=== PATIENT | male | born 1950 | race Caucasian/White ===

== ENCOUNTER 2016-02-20 09:00 | Outpatient (RCR) | payer MEDICARE, OTHER ==
[2015-04-07 01:20] VITALS: BP 154/99
[~2016-02-20 09:00] MED LIST: AMLODIPINE BESY10 MG PO; ASPIR-TRIN325 M1 PO; CLOBETASOL PROP0.053 TP; CODEINE/GUAIFE120 M2 PO; LISINOPRIL40 MG PO; MINIPRESS2 MG PO; NEURONTIN300 M1 PO; PERCOCET 325 MG1 TA2 PO; PROAIR RESPICL90 MCG IH; SYMBICORT1 AE3 IH; VANDAZOLE 0.75%70 GM TP
== END 2016-03-18 13:09 ==
LOC: OPPGERO 09:00
DX: F33.1 Major depressive disorder, recurrent, moderate (principal); F06.4 Anxiety disorder due to known physiological condition; F10.20 Alcohol dependence, uncomplicated

== ENCOUNTER 2016-03-19 08:15 | Outpatient (RCR) | payer MEDICARE, OTHER ==
[2015-04-07 01:20] VITALS: BP 154/99
[2016-04-11] MEDS ORDERED: COMBIVENT RESPI1 SPR IH (15:08)
[2016-04-11] MEDS ORDERED: COMBIVENT RESPI1 SPR INH (15:10)
[2016-04-11] MEDS ORDERED: ASPIR LOW81 MG PO (15:11)
[2016-04-11] MEDS ORDERED: KEFLEX250 M1 (15:12)
[2016-04-11] MEDS ORDERED: FLONASE ALLERG9.9 ML NS (15:14)
[2016-04-11] MEDS ORDERED: TEMOVATE CREAM15 GM TP (15:14)
[2016-04-11] MEDS ORDERED: ADVAIR DISKUS1 DS1 IH (15:15)
[2016-04-11] MEDS ORDERED: LASIX80 M1 PO (15:15)
[2016-04-11] MEDS ORDERED: IBU800 M1 PO (15:53)
[2016-04-11] MEDS ORDERED: CLARITIN10 M1 PO (15:54)
[2016-04-11] MEDS ORDERED: ATROVENT HFA IH (15:54)
[2016-04-11] MEDS ORDERED: METROCREAM CREA45 GM TOP (15:54)
[2016-04-11] MEDS ORDERED: SINGULAIR PO (15:55)
[2016-04-11] MEDS ORDERED: ELIQUIS5 MG PO (15:59)
[2016-04-16] MEDS ORDERED: PENICILLIN-VK500 M1 PO (15:22)
[2016-04-16] MEDS ORDERED: CARTIA XT240 MG PO (15:23)
== END 2016-04-15 10:17 ==
LOC: OPPGERO 08:15
DX: F33.1 Major depressive disorder, recurrent, moderate (principal); F06.4 Anxiety disorder due to known physiological condition; F10.20 Alcohol dependence, uncomplicated

== ENCOUNTER 2016-04-11 14:26 | Emergency (ER) | payer MEDICARE, OTHER ==
[2016-04-11] MEDS ORDERED: COMBIVENT RESPI1 SPR IH (15:08)
[2016-04-11] MEDS ORDERED: COMBIVENT RESPI1 SPR INH (15:10)
[2016-04-11] MEDS ORDERED: ASPIR LOW81 MG PO (15:11)
[2016-04-11] MEDS ORDERED: KEFLEX250 M1 (15:12)
[2016-04-11] MEDS ORDERED: FLONASE ALLERG9.9 ML NS (15:14)
[2016-04-11] MEDS ORDERED: TEMOVATE CREAM15 GM TP (15:14)
[2016-04-11] MEDS ORDERED: LASIX80 M1 PO (15:15)
[2016-04-11] MEDS ORDERED: ADVAIR DISKUS1 DS1 IH (15:15)
[2016-04-11] MEDS ORDERED: IBU800 M1 PO (15:53)
[2016-04-11] MEDS ORDERED: ATROVENT HFA IH (15:54)
[2016-04-11] MEDS ORDERED: METROCREAM CREA45 GM TOP (15:54)
[2016-04-11] MEDS ORDERED: CLARITIN10 M1 PO (15:54)
[2016-04-11] MEDS ORDERED: SINGULAIR PO (15:55)
[2016-04-11] MEDS ORDERED: ELIQUIS5 MG PO (15:59)
[2016-04-11 16:56] VITALS: BP 152/84
== END 2016-04-11 16:05 | disposition home or self-care (01) ==
LOC: ED 14:26
DX: R06.09 Other forms of dyspnea (principal); R60.9 Edema, unspecified; J44.9 Chronic obstructive pulmonary disease, unspecified; I50.9 Heart failure, unspecified; R09.02 Hypoxemia; R94.5 Abnormal results of liver function studies; R31.9 Hematuria, unspecified; F10.20 Alcohol dependence, uncomplicated; F17.210 Nicotine dependence, cigarettes, uncomplicated
CPT/HCPCS: J1940

== ENCOUNTER 2016-04-16 06:56 | Outpatient (RCR) | payer MEDICARE, OTHER ==
[~2016-04-16 06:56] MED LIST changes: +ADVAIR DISKUS1 DS1 IH; +ASPIR LOW81 MG PO; +ATROVENT HFA IH; +CLARITIN10 M1 PO; +COMBIVENT RESPI1 SPR IH; +COMBIVENT RESPI1 SPR INH; +ELIQUIS5 MG PO; +FLONASE ALLERG9.9 ML NS; +IBU800 M1 PO; +KEFLEX250 M1; +LASIX80 M1 PO; +METROCREAM CREA45 GM TOP; +SINGULAIR PO; +TEMOVATE CREAM15 GM TP
[2016-04-16] MEDS ORDERED: PENICILLIN-VK500 M1 PO (15:22)
[2016-04-16] MEDS ORDERED: CARTIA XT240 MG PO (15:23)
== END 2016-05-16 16:00 ==
LOC: OPPGERO 06:56

== ENCOUNTER 2016-04-16 14:33 | Outpatient (RCR) | payer MEDICARE, OTHER ==
[2016-04-16] MEDS ORDERED: PENICILLIN-VK500 M1 PO (15:22)
[2016-04-16] MEDS ORDERED: CARTIA XT240 MG PO (15:23)
[2016-04-16 15:27] VITALS: BP 150/91
[2016-04-16 16:48] VITALS: BP 146/82
[2016-04-17 14:32] VITALS: BP 117/63
[2016-04-17 15:28] VITALS: BP 113/76
[2016-04-18 14:43] VITALS: BP 153/85
[2016-04-18 15:39] VITALS: BP 129/75
[2016-04-19 14:45] VITALS: BP 114/69
[2016-04-19 15:45] VITALS: BP 107/64
[2016-04-20 14:28] VITALS: BP 138/73
[2016-04-20 15:25] VITALS: BP 121/63
[2016-04-22 13:35] VITALS: BP 157/75
[2016-04-22 15:20] VITALS: BP 153/81
[2016-04-23 13:30] VITALS: BP 150/82
[2016-04-23 15:00] VITALS: BP 145/79
[2016-04-24 13:40] VITALS: BP 179/101
--- NOTE | 2016-04-24 13:40 | NUR ---
NOTIFIED DOM OF PATIENTS ELEVATED BP AT THIS TIME, WE WILL CONTINUE TO MONITOR AND LET PATIENT "COOL DOWN" FROM WALKING IN AND BEING SOB PER PATIENT'S NORM
[2016-04-24 15:41] VITALS: BP 163/89
== END 2016-04-24 17:00 | disposition home or self-care (01) ==
LOC: AMSURD 14:33
DX: L03.116 Cellulitis of left lower limb (principal); L03.115 Cellulitis of right lower limb
CPT/HCPCS: J1956

== ENCOUNTER 2016-05-02 14:26 | Outpatient (RCR) | payer MEDICARE, OTHER ==
[~2016-05-02] VITALS: Ht 162.6 cm; Wt 108.2 kg
[2016-05-02 13:50] VITALS: BP 140/69
--- NOTE | 2016-05-02 14:10 | NUR ---
PT ARRIVES TO [facility] FOR OUTPATIENT WOUND DRESSING CHANGE, STATES THEY CHANGED HIS DRESSING ON THURSDAY AND WOUND CLINIC AND HE WILL BE RETURNING TO WOUND CLINIC ON THURSDAY FOR HIS NEXT DRESSING CHANGE AND WILL RELAY ANY NEW ORDERS BACK TO US, PT IN PLEASANT MOOD, PAIN AT SITE WITH MANIPULATION, MULTIPLE OPEN SORES TO LLE WITH PUS AND OOZING, ONLY 1 OPEN SORE TO LATERAL RLE WITH SCANT DRAINAGE, DRESSING CHANGE ADMINISTERED PER ORDERS, PATIENT TOLERATED PROCEDURE WELL, STATES HE IS ON ORAL ANTIBIOTICS AT HOME THAT "HOPEFULLY WILL HELP", PATIENT ARRIVED WITH NO SHOES AND WAS EDUCATED TO TRY AND FIND A PAIR BIG ENOUGH TO WEAR FOR PROTECTION AND SAFETY, PROVIDED TWO PAIRS OF XXL GRIPPER SOCKS FOR PROTECTION AT THIS TIME, NO FURTHER QUESTIONS OR CONCERNS, PATIENT AMBULATORY ON ROOM AIR TO [facility] TO RETURN HOME WITH HIS
[~2016-05-02 14:26] MED LIST changes: +CARTIA XT240 MG PO; +PENICILLIN-VK500 M1 PO
[2016-05-09 14:30] VITALS: BP 127/62
[2016-05-16 13:33] VITALS: BP 141/78
[2016-05-16 14:16] VITALS: BP 144/76
[2016-05-23 13:40] VITALS: BP 157/100
[2016-06-02] MEDS ORDERED: BETAPACE120 M1 PO (14:17)
[2016-06-02] MEDS ORDERED: POTASSIUM CH2 MEQ/ML PO (14:17)
[2016-06-02 14:20] VITALS: BP 138/82
[2016-06-09 13:50] VITALS: BP 130/52
[2016-06-09] MEDS ORDERED: BETAPACE PO (14:18)
[2016-06-16 13:45] VITALS: BP 126/78
== END 2016-07-31 | disposition home or self-care (01) ==
LOC: AMSURD → LAB 14:26 → AMSURD 14:26
DX: Z48.00 Encounter for change or removal of nonsurgical wound dressing (principal); L97.822 Non-pressure chronic ulcer of other part of left lower leg with fat layer exposed; L97.212 Non-pressure chronic ulcer of right calf with fat layer exposed; I87.2 Venous insufficiency (chronic) (peripheral)
CPT/HCPCS: 11883; A6206

== ENCOUNTER 2016-10-19 20:16 | Observation (INO) | payer MEDICARE, OTHER ==
[~2016-10-19] VITALS: Ht 162.6 cm; Wt 90.0 kg
[~2016-10-19 20:16] MED LIST changes: +BETAPACE PO; +BETAPACE120 M1 PO; +POTASSIUM CH2 MEQ/ML PO
[2016-10-19] MEDS ORDERED: ADVAIR DISKUS1 DS1 IH (20:50)
[2016-10-20 01:43] VITALS: BP 126/63
[2016-10-20 01:45] VITALS: BP 126/63
[2016-10-20 03:39] VITALS: BP 120/69
[2016-10-20 06:43] VITALS: BP 133/78
[2016-10-20] MEDS ORDERED: LASIX80 M1 PO (10:09)
[2016-10-20] MEDS ORDERED: CEFDINIR300 MG PO (10:14)
[2016-10-20] MEDS ORDERED: IPRATROPIUM BROM3 M1 IH (10:14)
[2016-10-20] MEDS ORDERED: ZITHROMAX 250M250 MG PO (10:14)
[2016-10-20] MEDS ORDERED: K-TAB20 MEQ PO (10:17)
[2016-10-20 11:00] VITALS: BP 138/80
== END 2016-10-20 13:57 | disposition home or self-care (01) ==
LOC: ED 20:16 → MED/SURG 10-20 01:14
PROVIDERS: ADMIT Family Medicine
DX: I11.0 Hypertensive heart disease with heart failure (principal); I50.1 Left ventricular failure, unspecified; J44.0 Chronic obstructive pulmonary disease with (acute) lower respiratory infection; J18.9 Pneumonia, unspecified organism; R09.02 Hypoxemia; J44.1 Chronic obstructive pulmonary disease with (acute) exacerbation; R79.89 Other specified abnormal findings of blood chemistry; F10.10 Alcohol abuse, uncomplicated; Z79.01 Long term (current) use of anticoagulants; E87.6 Hypokalemia; I44.2 Atrioventricular block, complete; Z95.0 Presence of cardiac pacemaker; F17.210 Nicotine dependence, cigarettes, uncomplicated; R00.0 Tachycardia, unspecified; Z99.81 Dependence on supplemental oxygen; S81.812A Laceration without foreign body, left lower leg, initial encounter; S81.811A Laceration without foreign body, right lower leg, initial encounter; S41.112A Laceration without foreign body of left upper arm, initial encounter; S41.111A Laceration without foreign body of right upper arm, initial encounter; X58.XXXA Exposure to other specified factors, initial encounter; T50.996A Underdosing of other drugs, medicaments and biological substances, initial encounter; Z91.128 Patient's intentional underdosing of medication regimen for other reason; R32 Unspecified urinary incontinence
CPT/HCPCS: G0378; J0696; J1940

== ENCOUNTER → 2018-01-14 | Outpatient (CLI) | payer MEDICARE, OTHER ==
[~2018-01-14] MED LIST changes: +CEFDINIR300 MG PO; +IPRATROPIUM BROM3 M1 IH; +K-TAB20 MEQ PO; +ZITHROMAX 250M250 MG PO
== END ==
LOC: RAD 13:00
DX: R91.8 Other nonspecific abnormal finding of lung field (principal)

== ENCOUNTER 2018-07-08 11:50 | Emergency (ER) | payer MEDICARE, OTHER ==
[~2018-07-08] VITALS: Ht 165.1 cm; Wt 88.8 kg
[~2018-07-08 11:50] MED LIST changes: +CEPHALEXIN500 M1 PO; +SOTALOL HCL160 MG PO
[2018-07-08 12:16] LABS: BASO # 0.1 (0.02-0.10); EOS # 0.1 (0.04-0.40); EOS % 0.9 % (0.0-4.0); HEMATOCRIT 29.5 % (42.0-52.0); HEMOGLOBIN 9.9 g/dL (13.5-18.0); LYMPH# 1.3 (1.50-4.00); MEAN CELL VOLUME 94 fl (78-100); MEAN CORPUSCULAR HEMOGLOBIN 32 pg (27-31); MEAN CORPUSCULAR HGB CONC 34 g/dL (33-37); MEAN PLATELET VOLUME 11.1 fl (7.4-10.4); MONO # 0.8 (0.20-0.80); NEU # 5.7 (1.40-6.50); PLATELET COUNT 188 K/mm3 (130-400); RED BLOOD COUNT 3.13 M/mm3 (4.20-5.60); RED CELL DISTRIBUTION WIDTH 16.2 % (11.5-14.5); WHITE BLOOD COUNT 7.9 K/mm3 (4.8-10.8)
[2018-07-08 12:32] LABS: CALCIUM 8.4 mg/dL (8.8-10.0); POTASSIUM 3.2 mmol/L (3.5-5.1); TOTAL BILIRUBIN 1.5 mg/dL (0.2-1.2); TOTAL PROTEIN 6.1 g/dL (6.2-8.1)
[2018-07-08 15:22] LABS: URINE APPEARANCE HAZY; URINE BILIRUBIN NEGATIVE (NEGATIVE); URINE BLOOD TRACE (NEGATIVE); URINE COLOR YELLOW; URINE GLUCOSE NEGATIVE (NEGATIVE); URINE KETONE 1+ (NEGATIVE); URINE LEUKOCYTE ESTERASE TRACE (NEGATIVE); URINE NITRATE NEGATIVE (NEGATIVE); URINE PROTEIN(semi-quant) TRACE mg/dL (NEGATIVE); URINE UROBILINOGEN NORMAL (NORMAL)
[2018-07-08 18:46] VITALS: BP 113/57
[2018-07-08 19:03] VITALS: BP 113/57
[2018-07-08 22:17] VITALS: BP 110/63
[2018-07-09 03:00] VITALS: BP 114/63
[2018-07-09 06:26] VITALS: BP 119/72; BP 136/62
[2018-07-09 09:37] VITALS: BP 120/72
== END 2018-07-08 17:30 | disposition other institution (70) ==
LOC: ED 11:50 → MED/SURG 17:31
PROVIDERS: Nurse Practitioner Family
DX: S80.812A Abrasion, left lower leg, initial encounter (principal); F10.10 Alcohol abuse, uncomplicated; E87.6 Hypokalemia; E87.1 Hypo-osmolality and hyponatremia; R62.7 Adult failure to thrive; E83.42 Hypomagnesemia; I25.10 Atherosclerotic heart disease of native coronary artery without angina pectoris; I11.0 Hypertensive heart disease with heart failure; I50.9 Heart failure, unspecified; G47.33 Obstructive sleep apnea (adult) (pediatric); G62.9 Polyneuropathy, unspecified; J44.9 Chronic obstructive pulmonary disease, unspecified; M54.30 Sciatica, unspecified side; F43.10 Post-traumatic stress disorder, unspecified; F32.9 Major depressive disorder, single episode, unspecified; F17.210 Nicotine dependence, cigarettes, uncomplicated; Z23 Encounter for immunization; Z74.2 Need for assistance at home and no other household member able to render care; Z95.0 Presence of cardiac pacemaker; Z87.442 Personal history of urinary calculi; Z79.01 Long term (current) use of anticoagulants; Z96.651 Presence of right artificial knee joint; W18.30XA Fall on same level, unspecified, initial encounter; Y92.009 Unspecified place in unspecified non-institutional (private) residence as the place of occurrence of the external cause
CPT/HCPCS: 90715; C9113; J0610; J1940; J3411; J3475; J3480; J3490; J7030; J7050; L0172

== ENCOUNTER → 2018-07-20 | Outpatient (CLI) | payer MEDICARE, OTHER ==
[2018-07-09 09:37] VITALS: BP 120/72
[2018-07-20 16:07] LABS: PROTHROMBIN TIME 11.4 SECONDS (9.0-12.0)
[2018-07-20 16:10] LABS: TOTAL BILIRUBIN 1.3 mg/dL (0.2-1.2); TOTAL PROTEIN 6.6 g/dL (6.2-8.1)
[2018-07-20 16:16] LABS: BASO # 0.1 (0.02-0.10); EOS # 0.1 (0.04-0.40); EOS % 1.2 % (0.0-4.0); HEMATOCRIT 33.3 % (42.0-52.0); HEMOGLOBIN 10.7 g/dL (13.5-18.0); LYMPH# 1.8 (1.50-4.00); MEAN CELL VOLUME 95 fl (78-100); MEAN CORPUSCULAR HEMOGLOBIN 31 pg (27-31); MEAN CORPUSCULAR HGB CONC 32 g/dL (33-37); MEAN PLATELET VOLUME 10.2 fl (7.4-10.4); MONO # 1.1 (0.20-0.80); NEU # 6.1 (1.40-6.50); PLATELET COUNT 287 K/mm3 (130-400); RED CELL DISTRIBUTION WIDTH 17.6 % (11.5-14.5); WHITE BLOOD COUNT 9.2 K/mm3 (4.8-10.8)
== END ==
LOC: LAB 15:34
PROVIDERS: Physician Assistant
DX: I48.91 Unspecified atrial fibrillation (principal)

== ENCOUNTER 2018-07-24 12:46 | Emergency (ER) | payer MEDICARE, OTHER ==
[~2018-07-24] VITALS: Ht 162.6 cm; Wt 87.6 kg
[2018-07-24 13:45] LABS: BASO # 0.2 (0.02-0.10); EOS # 0.1 (0.04-0.40); EOS % 1.6 % (0.0-4.0); HEMATOCRIT 31.8 % (42.0-52.0); HEMOGLOBIN 10.1 g/dL (13.5-18.0); LYMPH# 1.8 (1.50-4.00); MEAN CELL VOLUME 95 fl (78-100); MEAN CORPUSCULAR HEMOGLOBIN 30 pg (27-31); MEAN CORPUSCULAR HGB CONC 32 g/dL (33-37); MEAN PLATELET VOLUME 10.2 fl (7.4-10.4); MONO # 0.9 (0.20-0.80); NEU # 4.5 (1.40-6.50); PLATELET COUNT 180 K/mm3 (130-400); RED BLOOD COUNT 3.34 M/mm3 (4.20-5.60); RED CELL DISTRIBUTION WIDTH 18.6 % (11.5-14.5); WHITE BLOOD COUNT 7.5 K/mm3 (4.8-10.8)
[2018-07-24 14:02] LABS: CALCIUM 9.2 mg/dL (8.3-10.5); POTASSIUM 3.9 mmol/L (3.5-5.1); TOTAL BILIRUBIN 1.2 mg/dL (0.2-1.2); TOTAL PROTEIN 6.4 g/dL (6.2-8.1)
[2018-07-24 14:33] LABS: URINE APPEARANCE CLEAR; URINE BILIRUBIN NEGATIVE (NEGATIVE); URINE BLOOD NEGATIVE (NEGATIVE); URINE COLOR YELLOW; URINE GLUCOSE NEGATIVE (NEGATIVE); URINE KETONE NEGATIVE (NEGATIVE); URINE LEUKOCYTE ESTERASE TRACE (NEGATIVE); URINE NITRATE NEGATIVE (NEGATIVE); URINE PROTEIN(semi-quant) NEGATIVE (NEGATIVE); URINE UROBILINOGEN NORMAL (NORMAL); URINE WBC 0-1 /hpf (0-3)
[2018-07-24 18:40] VITALS: BP 144/78
== END 2018-07-24 18:40 | disposition home or self-care (01) ==
LOC: ED 12:46
PROVIDERS: Family Medicine
DX: R26.81 Unsteadiness on feet (principal); F10.10 Alcohol abuse, uncomplicated; I25.10 Atherosclerotic heart disease of native coronary artery without angina pectoris; I11.0 Hypertensive heart disease with heart failure; I50.9 Heart failure, unspecified; J44.9 Chronic obstructive pulmonary disease, unspecified; F17.210 Nicotine dependence, cigarettes, uncomplicated; F32.9 Major depressive disorder, single episode, unspecified; F43.10 Post-traumatic stress disorder, unspecified; Z87.442 Personal history of urinary calculi; Z95.0 Presence of cardiac pacemaker; W19.XXXA Unspecified fall, initial encounter; Y92.009 Unspecified place in unspecified non-institutional (private) residence as the place of occurrence of the external cause
CPT/HCPCS: J3411; J3490; J7030